=== PATIENT | female | born 1965 | race American Indian/Alaskan Native ===

== ENCOUNTER 2024-04-21 01:49 | Emergency (ER) | payer OTHER, SELFPAY ==
[2024-04-21 01:54] VITALS: PULSE 100; O2SAT 97
[2024-04-21 01:55] VITALS: BP 118/75; PULSE 100
[2024-04-21 01:58] VITALS: BP 118/75; PULSE 98; RESP 18; TEMP 36.2; O2SAT 98; BMI 25.6
--- NOTE | 2024-04-21 01:59 | DI.RAD.S_ITS ---
PROCEDURE: XR TIBIA FUBULA RT 2V INDICATIONS: R lower leg pain TECHNIQUE: 2 views of the tibia and fibula were acquired. COMPARISON: None. FINDINGS: Bones: There is an oblique fracture of the distal right tibia with overlying soft tissue swelling. There is a mildly displaced fracture of the proximal right fibula as well as a minimally displaced fracture involving the distal fibula. Right knee joint appears intact. Soft tissues: No suspicious soft tissue calcifications or masses. IMPRESSION: Mildly displaced oblique fracture of the distal right tibia. Displaced fractures of the proximal and distal fibula. No significant discrepancy with the [facility] preliminary report. Dictated by: Tay Winter M.D. on 04/21/2024 at 7:27 Approved by: Tay Winter M.D. on 04/21/2024 at 7:28
[2024-04-21 02:00] VITALS: BP 118/88; PULSE 95; O2SAT 95
--- NOTE | 2024-04-21 02:16 | DI.RAD.S_ITS ---
PROCEDURE: XR ANKLE RT MIN 3V INDICATIONS: ankle fracture TECHNIQUE: 3 views of the ankle were acquired. COMPARISON: None. FINDINGS: Bones: Displaced oblique fracture of the distal tibial diametaphysis with overlying soft tissue swelling. Minimally displaced fracture of the distal right fibula. Ankle mortise appears intact. Remainder of the visualized osseous structures appear intact. Plantar calcaneal enthesophyte. Soft tissues: No tibiotalar joint effusion. Achilles tendon appears normal. IMPRESSION: Oblique, mildly displaced fracture of the distal right tibial diametaphysis. Minimally displaced distal fibular fracture. Ankle mortise appears intact. No significant discrepancy with the [facility] preliminary report. Dictated by: Tay Winter M.D. on 04/21/2024 at 7:29 Approved by: Tay Winter M.D. on 04/21/2024 at 7:30
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
[2024-04-21] MEDS: HYDROCODONE/ACET 5/325 PREPACK 1 BOTTLE MISC (02:22)
[2024-04-21] MEDS: HYDROCODONE/ACET 5/325 TABLET 1 TAB PO (02:22)
[2024-04-21 03:10] VITALS: BP 132/84; PULSE 80; RESP 14; O2SAT 100
== END 2024-04-21 03:11 | disposition home or self-care (01) ==
PROVIDERS: Emergency Provider Emergency Medicine
DX: S82.101A Unspecified fracture of upper end of right tibia, initial encounter for closed fracture (principal); S82.491A Other fracture of shaft of right fibula, initial encounter for closed fracture; V03.90XA Pedestrian on foot injured in collision with car, pick-up truck or van, unspecified whether traffic or nontraffic accident, initial encounter
CPT/HCPCS: 29515; 73590; 73610; 99283

== ENCOUNTER 2024-04-22 15:56 | Emergency (ER) | payer OTHER, SELFPAY ==
[2024-04-22 15:59] VITALS: BP 141/84; PULSE 72; RESP 18; TEMP 37.1; O2SAT 99; BMI 25.6
--- NOTE | 2024-04-22 16:09 | PC.NURSE ---
Orthoglass alejandro wraps removed. +CMS distally. pt states it feels slightly better when unwrapped. using hydrocodone for pain. has not tried tylenol or ibuprofen. Cannot see ortho until 05/02
[2024-04-22] MEDS: IBUPROFEN 400 MG TABLET 800 MG PO (16:27)
[2024-04-22] MEDS: ACETAMINOPHEN 325 MG TABLET 650 MG PO (16:27)
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
[2024-04-22 16:57] VITALS: BP 136/78; PULSE 70; RESP 16; O2SAT 97
--- NOTE | 2024-04-22 18:40 | ED_ITS ---
HPI - Extremity Injury (Lower) <Lanette Godwin PA-C - Last Filed: 04/22/24 18:44> General Chief Complaint: Extremity Injury, Lower Stated Complaint: rt ankle pain Time Seen by Provider: 04/22/24 16:09 Source: patient Mode of arrival: Wheelchair History of Present Illness HPI Narrative: 59-year-old female who was seen earlier today for tib-fib fractures of the right leg returns to the ED due to worsening pain. Patient states she has been taking the Percocet as prescribed. No numbness, tingling, weakness. Related Data Previous Rx's Medication Instructions Recorded hydrocodone 5 mg-acetaminophen 325 1 tab PO Q4-6H PRN pain #14 tabs 04/21/24 mg tablet acetaminophen 325 mg capsule 650 mg (2 x 325 mg) PO Q8H PRN 04/22/24 pain 15 days #90 caps ibuprofen 800 mg tablet 800 mg PO Q8H PRN pain 15 days #45 04/22/24 tabs Allergies Allergy/AdvReac Type Severity Reaction Status Date / Time No Known Drug Allergies Allergy Verified 04/21/24 02:03 Review of Systems <Lanette Godwin PA-C - Last Filed: 04/22/24 18:44> Constitutional Constitutional: Denies chills, Denies fatigue, Denies fever(s), Denies frequent falls, Denies lethargy and Denies weakness Eyes Eyes: Denies change in vision, Denies eye discharge, Denies irritation and Denies loss of vision ENT Ears, Nose, Mouth, and Throat: Denies change in voice, Denies dizziness, Denies neck pain, Denies sore throat and Denies throat swelling Cardiovascular Cardiovascular: Denies chest pain, Denies irregular heart rhythm, Denies lightheadedness, Denies palpitations, Denies dyspnea, Denies dyspnea on exertion and Denies orthopnea Respiratory Respiratory: Denies cough, Denies dyspnea, Denies dyspnea on exertion and Denies wheezing Gastrointestinal Gastrointestinal: Denies abdominal pain, Denies change in bowel habits, Denies diarrhea, Denies nausea and Denies vomiting Musculoskeletal Musculoskeletal: Denies neck pain and Denies numbness Comments: Right leg pain Integumentary/Breasts Skin/Breast: Denies pruritus, Denies erythema, Denies rash and Denies wounds Neurologic Neurologic: Denies behavioral changes, Denies confusion, Denies dizziness, Denies frequent falls, Denies loss of vision, Denies numbness and Denies weakness Psychiatric Psychiatric: Denies anxiety, Denies behavioral changes, Denies confusion, Denies depression, Denies homicidal ideation and Denies suicidal ideation Endocrine Endocrine: Denies fatigue, Denies flushing and Denies palpitations Hematologic/Lymphatic Hematologic/Lymphatic: Denies easy bruising Allergic/Immunologic Allergic/Immunologic: Denies urticaria, Denies throat swelling and Denies wheezing Patient History <Lanette Godwin PA-C - Last Filed: 04/22/24 18:44> Social History Smoking Status: Current some day smoker Smoking Status: Current some day smoker tobacco type: cigarettes alcohol intake frequency: 0-2 drinks per day Alcohol type: beer Substance Use Type: does not use Exam <Lanette Godwin PA-C - Last Filed: 04/22/24 18:44> Narrative Exam Narrative: Const General:?cooperative, healthy appearing and comfortable [facility] Head:?normal to inspection Ears:?hearing grossly normal bilaterally Nose:?external nose normal Face and sinus:?normal facial exam and sinuses nontender Mouth:?oral mucosae normal Throat:?posterior oropharynx normal Eyes General:?appearance normal, both eyes and all related structures Neck Neck:?normal visual inspection and no lymphadenopathy noted Resp Effort & Inspection:?normal respiratory effort Auscultation:?clear to auscultation bilaterally Cardio Rate:?regular rate Rhythm:?regular rhythm Musculoskeletal Patient arrives with a posterior and stirrup splint intact. Pedal pulses intact. Patient is neurovascularly intact. Neuro General:?patient alert, patient awake and patient oriented x3 Initial Vital Signs Initial Vital Signs: Vital Signs Temperature 98.7 F 04/22/24 15:59 Pulse Rate 72 04/22/24 15:59 Respiratory Rate 18 04/22/24 15:59 Blood Pressure 141/84 H 04/22/24 15:59 Pulse Oximetry 99 04/22/24 15:59 Oxygen Delivery Method Room Air 04/22/24 15:59 <Jamey Frazier DO - Last Filed: 04/22/24 18:54> Initial Vital Signs Initial Vital Signs: Vital Signs Temperature 98.7 F 04/22/24 15:59 Pulse Rate 72 04/22/24 15:59 Respiratory Rate 18 04/22/24 15:59 Blood Pressure 141/84 H 04/22/24 15:59 Pulse Oximetry 99 04/22/24 15:59 Oxygen Delivery Method Room Air 04/22/24 15:59 Course <Lanette Godwin PA-C - Last Filed: 04/22/24 18:44> Orders Ordered: Discontinued Medications Acetaminophen (Acetaminophen 325 Mg Tablet) 650 mg PO NOW ONE Stop: 04/22/24 16:24 Last Admin: 04/22/24 16:27 Dose: 650 mg Documented By: JUSTINO Ibuprofen (Ibuprofen 400 Mg Tablet) 800 mg PO NOW ONE Stop: 04/22/24 16:24 Last Admin: 04/22/24 16:27 Dose: 800 mg Documented By: CTS Vital Signs Vital signs: Vital Signs - 8 hr 04/22/24 15:59 04/22/24 16:57 Temperature 98.7 F Pulse Rate 72 70 Respiratory Rate 18 16 Blood Pressure 141/84 H 136/78 Pulse Oximetry 99 97 Oxygen Delivery Method Room Air Room Air <Jamey Frazier DO - Last Filed: 04/22/24 18:54> Orders Ordered: Discontinued Medications Acetaminophen (Acetaminophen 325 Mg Tablet) 650 mg PO NOW ONE Stop: 04/22/24 16:24 Last Admin: 04/22/24 16:27 Dose: 650 mg Documented By: JUSTINO Ibuprofen (Ibuprofen 400 Mg Tablet) 800 mg PO NOW ONE Stop: 04/22/24 16:24 Last Admin: 04/22/24 16:27 Dose: 800 mg Documented By: CTS Vital Signs Vital signs: Vital Signs - 8 hr 04/22/24 15:59 04/22/24 16:57 Temperature 98.7 F Pulse Rate 72 70 Respiratory Rate 18 16 Blood Pressure 141/84 H 136/78 Pulse Oximetry 99 97 Oxygen Delivery Method Room Air Room Air MDM - Extremity Injury (Lower) <Lanetet Godwin PA-C - Last Filed: 04/22/24 18:44> MDM Narrative Medical decision making narrative: 59-year-old female who was seen earlier today for tib-fib fractures of the right leg returns to the ED due to worsening pain. The wrap around the splint was removed which relieved patient's pain. It appears that patient's symptoms are from continued swelling after the splint was applied. The [place] wrap was reapplied. Patient was also given Tylenol and ibuprofen. Recommend that patient supplement the hydrocodone with Tylenol and ibuprofen for optimal pain control. Patient was also provided crutches. Patient does have a ortho appointment set up the next few days. ED return precautions discussed with patient. Patient verbalized understanding. Medical records reviewed: Yes. <Jamey Frazier, DO - Last Filed: 04/22/24 18:54> [facility] Narrative Medical decision making narrative: 59-year-old female who was seen earlier today for tib-fib fractures of the right leg returns to the ED due to worsening pain. The wrap around the splint was removed which relieved patient's pain. It appears that patient's symptoms are from continued swelling after the splint was applied. The [place] wrap was reapplied. Patient was also given Tylenol and ibuprofen. Recommend that patient supplement the hydrocodone with Tylenol and ibuprofen for optimal pain control. Patient was also provided crutches. Patient does have a ortho appointment set up the next few days. ED return precautions discussed with patient. Patient verbalized understanding. Medical records reviewed: Yes. Dr. Frazier: I was immediately available in the department for consultation. Documentation has been reviewed. I agree with assessment and plan. Discharge Plan Departure Patient Disposition: Home Clinical Impression: Fracture of tibia and fibula Qualifiers: Encounter type: subsequent encounter Fracture type: closed Laterality: right Fracture healing: with routine healing Qualified Code(s): S82.201D - Unspecified fracture of shaft of right tibia, subsequent encounter for closed fracture with routine healing Instructions: How to Use Crutches Activity Restrictions/Additional Instructions: You were evaluated in the ED today for continued pain from your fractures. It is common for the splints to get too tight due to continued swelling after the initial splint placement. You did get significant pain relief once the wrapping was removed and a looser wrapping put on over the splint. It is also recommended that you take 650 mg of Tylenol and 800 mg of ibuprofen every 8 hours with food in addition to the hydrocodone for optimal pain relief. You have also been provided crutches. Please follow-up with ortho as scheduled. Return to the ED if you have worsening symptoms. Prescriptions: New ibuprofen 800 mg tablet 800 mg PO Q8H PRN (Reason: pain) 15 Days Qty: 45 0RF acetaminophen 325 mg capsule 650 mg PO Q8H PRN (Reason: pain) 15 Days Qty: 90 0RF No Action hydrocodone-acetaminophen 5-325 mg tablet 1 tab PO Q4-6H PRN (Reason: pain) Qty: 14 0RF Referrals: Miscellaneous,Doctor, MD [Primary Care Provider] - Stand Alone Forms: Patient Portal/API
== END 2024-04-22 16:58 | disposition home or self-care (01) ==
PROVIDERS: Emergency Provider Student in an Organized Health Care Education/Training Program
DX: S82.201D Unspecified fracture of shaft of right tibia, subsequent encounter for closed fracture with routine healing (principal)
CPT/HCPCS: 99282; 99283

== ENCOUNTER → 2024-08-15 12:45 | Outpatient (CLI) | payer OTHER, SELFPAY ==
--- NOTE | 2024-08-15 12:47 | DI.CT.S_ITS ---
PROCEDURE: CT LE RT WO CON INDICATIONS: CLOSED DISPLACED PILON FX RT TIBIA TECHNIQUE: Noncontrast 3-mm axial sections acquired from the distal tibial shaft to the talar dome, with coronal and sagittal reformats.. COMPARISON: [facility] [place], CR, XR ANKLE 3+ VIEWS RIGHT, 06/18/2024, 15:24. [facility] [place], CR, XR TIBIA FIBULA RIGHT, 05/17/2024, 15:29. [facility], CT, CT LOWER EXTREMITY RIGHT WITHOUT CONTRAST, 04/26/2024, 13:58. [facility], CR, XR ANKLE RT MIN 3V, 04/21/2024, 2:13. [facility], CR, XR TIBIA FIBULA RT 2V, 04/21/2024, 2:05. [facility], CR, XR ANKLE 3+ VIEWS RIGHT, 02/10/2023, 14:37. [facility], CR, XR ANKLE 3+ VIEWS RIGHT, 12/27/2022, 16:05. FINDINGS: Image quality: Excellent. Bones: Diffuse osseous demineralization with superimposed disuse osteopenia of the visualized lower extremity. Continued healing of distal fibular diaphyseal, obliquely oriented fracture with intra-articular extension toward the anterior-medial tibial plafond status post medial plate and screw fixation. Ongoing healing of obliquely oriented proximal fibular diaphyseal fracture with developing callus formation and osseous bridging (). Chronic, healed distal fibular Woodruff B fracture. Joints: Ankle mortise is preserved. No talar dome osteochondral defect. The other joint spaces are preserved. Muscles: Mild diffuse muscle atrophy. Tendons: The Achilles, flexor, and extensor tendon contours are preserved. Vessels: No aneurysmal dilatation of the visualized vasculature. Other soft tissues: No acute abnormality. IMPRESSION: 1. Continued, ongoing healing of distal tibial internally fixed and proximal fibular non operatively managed fractures. 2. Chronic, healed distal fibular Woodruff B fracture. Dictated by: Paul Mckeon M.D. on 08/19/2024 at 8:45 Approved by: Paul Mckeon M.D. on 08/19/2024 at 9:06
== END ==
PROVIDERS: Referring Provider Orthopaedic Surgery Foot and Ankle Surgery; Visit Provider Orthopaedic Surgery Foot and Ankle Surgery
DX: S82.871G Displaced pilon fracture of right tibia, subsequent encounter for closed fracture with delayed healing (principal); S82.831D Other fracture of upper and lower end of right fibula, subsequent encounter for closed fracture with routine healing; X58.XXXD Exposure to other specified factors, subsequent encounter
CPT/HCPCS: 73700; Q9967